=== PATIENT | male | born 1980 | race Two or more races ===

== ENCOUNTER 2023-06-19 23:16 | Emergency (ER) | payer OTHER ==
[~2023-06-19] VITALS: Ht 165.1 cm; Wt 71.3 kg
[2023-06-20 00:24] VITALS: BP 137/104; PULSE 69; RESP 20; TEMP 97.7; O2SAT 98
[2023-06-20] MEDS ORDERED: ACET300T58 PO (01:11)
[2023-06-20] MEDS ORDERED: CEPH500C PO (01:11)
[2023-06-20] MEDS: ACETAMINOPHEN/CODEINE#3 (300/30mg) TAB PO ONE (03:02)
== END 2023-06-20 03:12 | disposition home or self-care (01) ==
LOC: ER 23:16
DX: S02.5XXA Fracture of tooth (traumatic), initial encounter for closed fracture (principal); X58.XXXA Exposure to other specified factors, initial encounter; Y93.89 Activity, other specified; Y92.89 Other specified places as the place of occurrence of the external cause; Y99.8 Other external cause status

== ENCOUNTER 2023-08-22 00:44 | Emergency (ER) | payer OTHER ==
[~2023-08-22] VITALS: Ht 165.1 cm; Wt 68.5 kg
[~2023-08-22 00:44] MED LIST: ACET300T58 PO; CEPH500C PO
[2023-08-22 00:54] VITALS: BP 178/117; PULSE 83; RESP 20; O2SAT 98
== END 2023-08-22 01:12 | disposition left against medical advice (07) ==
LOC: ER 00:44
DX: K08.89 Other specified disorders of teeth and supporting structures (principal); Z53.21 Procedure and treatment not carried out due to patient leaving prior to being seen by health care provider